=== PATIENT | male | born 1945 | race Caucasian/White ===

== ENCOUNTER 2024-01-05 12:24 | Observation (INO) ==
--- NOTE | 2024-01-05 12:44 | Emergency Department Note ---
Impression & Plan Altered mental status, Vomiting and diarrhea, Dementia, Aspiration into airway ED Provider Note NAME: JONNIE SILVA AGE: 78 SEX: M : 1945 ARRIVES VIA: Ambulance INFORMANT: [Patient][ems, son, nursing] ED PROVIDER(S): [Eliud Manuel MD] CHIEF COMPLAINT: Illness HISTORY OF PRESENT ILLNESS: The patient is an 78-year-old man with dementia. He resides at [place]. The patient was found somnolent and he had vomited. He had had diarrhea. He was brought for evaluation. There was concerns for aspiration. Apparently, there is a flulike illness going around his care center. As per the son, the patient seemed fine yesterday. The patient can give no history because of his dementia. PMHx/PSHx/Social Hx: See Below PHYSICAL EXAM: GENERAL: Patient is in no acute distress. HEENT: No acute trauma, normocephalic atraumatic, mucous membranes moist, no nasal congestion. NECK: No stridor, no adenopathy, no meningismus, trachea is midline. LUNGS: Clear to auscultation bilaterally when listening anterior, no wheeze, no rhonchi, breath sounds equal. HEART: Without murmurs gallops or rubs, regular rate and rhythm. ABDOMEN: Soft, nontender, no peritonitis. EXTREMITIES: No cyanosis, full range of motion of all the joints without pain or difficulty. NEUROLOGIC: Responds to voice or touch, somnolent, no acute motor or sensory deficits, no focal weakness. SKIN: No jaundice, no diaphoresis. DIFFERENTIAL DIAGNOSIS: Sepsis or bacteremia, aspiration, flu like illness, pneumonia, UTI, electrolyte imbalance, intracranial waiting or stroke, among others. EMERGENCY DEPARTMENT PROCEDURES: MEDICAL DECISION MAKING: There is no leukocytosis or concerning anemia. There is a normal platelet count. Potassium slightly low but not in need of emergent correction. No renal failure. Lactic acid level is not elevated making severe sepsis less likely. There is no concerning liver enzyme elevation. Ammonia level was not elevated. ECG shows a normal sinus rhythm, no obvious ST elevation. Cardiac enzyme testing x 1 is not consistent with acute cardiac injury. Patient appeared to be in a euthyroid state. Urinalysis suggests some dehydration, no findings of infection. Respiratory bio fire was negative. Brain CT showed no acute bleed or mass effect. Chest x-ray did not show pneumonia or CHF. On exam, patient seemed somnolent. He was not toxic or febrile. Patient received IV saline, 500 cc. He was given IV Zofran, IV ceftriaxone and IV Tylenol. The patient presents with concerns for aspiration. He was found covered in stool and vomitus. He has had a change in his mental state. Given his complaint complex, given the concerns for aspiration, I do think a hospital stay is warranted. I spoke with the patient and case management, I spoke with the son. The on-call hospitalist was consulted. Prior/Outside records/notes reviewed: Today's EMS notes describing his presentation and transport to this facility. ECG per my interpretation: Indication was weakness. The ECG shows a normal sinus rhythm with a rate of 74. There is some baseline artifact. No concerning ST elevation, no PVCs. The QTc is 441. Continuous Cardiac Monitoring per my interpretation: An order was placed for continuous cardiac monitoring. The monitor shows a rate of 78 with normal sinus rhythm. Imaging/x-ray results per my interpretation: Chest x-ray showed some chronic change, I saw no pneumonia or pneumothorax. Chronic Medical/Social conditions affecting care: Advanced age, history of dementia Care/Management discussed with: Case management, the on-call hospitalist. Level of care consideration(s): After review of the information above and other included data: --I believe the patient requires escalation of care to admission DISPOSITION: Admission Past Med/Surg History Medical History FHx: bilateral hip replacements Hypothyroid Dementia Hyperlipidemia Hypertension Surgical History History of replacement of both shoulder joints Social History Smoking Status: Never smoker Hx Alcohol Use: No Hx Substance Use: No Preferred Language: Micronesian Communication Ability: Effective Visual Impairment: Limited Hearing Ability: Hard of Hearing Janitor Supervisor Required: No Beliefs That Will Affect Care: Jew Jew Beliefs: Sikh Feels Safe at Home: Yes Diet: regular Allergies Allergies Allergy/AdvReac Type Severity Reaction Status Date / Time No Known Allergies Allergy Unverified 01/05/24 15:23 Home Meds Home Medications Medication Instructions Recorded Confirmed acetaminophen 325 mg tablet 650 mg PO TID 01/05/24 01/05/24 (Tylenol) ceramides 1,3,6-II (CeraVe Daily 1 applic topical DAILY 01/05/24 01/05/24 Moisturizing lotion) clonazepam 0.5 mg disintegrating 0.5 mg PO HS 01/05/24 01/05/24 tablet diclofenac sodium 1 % topical gel 2 g topical BID 01/05/24 01/05/24 escitalopram oxalate 5 mg tablet 5 mg PO DAILY 01/05/24 01/05/24 furosemide 40 mg tablet 40 mg PO Q OTHER DAY 01/05/24 01/05/24 furosemide 40 mg tablet 60 mg PO Q OTHER DAY 01/05/24 01/05/24 ketoconazole 2 % shampoo 1 applic topical 2XWK 01/05/24 01/05/24 levothyroxine 50 mcg tablet 50 mcg PO DAILY 01/05/24 01/05/24 loperamide 2 mg tablet 2 mg PO DAILY PRN .loose stool 01/05/24 01/05/24 (Anti-Diarrheal (loperamide)) losartan 100 mg tablet 100 mg PO HS 01/05/24 01/05/24 memantine 10 mg tablet 10 mg PO DAILY 01/05/24 01/05/24 Results & Data (ED) Vital Signs Vital Signs - 24 hr 01/05/24 12:38 01/05/24 12:39 01/05/24 12:46 Temperature 36.9 C Temperature Source Axillary Pulse Rate 71 78 Pulse Rate from SpO2 Sensor Respiratory Rate 22 Respiratory Effort / Characteristics Non-Labored Respiratory Depth Normal Blood Pressure 118/86 Blood Pressure Mean 96 Pulse Oximetry 95 93 Oxygen Delivery Method Room Air Room Air Sepsis Recent Fever Within 48 Hours No Sepsis New/Unexplained Change in Mental Status No Sepsis Action Taken by Nursing No Action Required 01/05/24 14:24 Temperature Temperature Source Pulse Rate 71 Pulse Rate from SpO2 Sensor 73 Respiratory Rate 22 Respiratory Effort / Characteristics Respiratory Depth Blood Pressure 129/64 Blood Pressure Mean 85 Pulse Oximetry 93 Oxygen Delivery Method Sepsis Recent Fever Within 48 Hours Sepsis New/Unexplained Change in Mental Status Sepsis Action Taken by Half-Way Medications Current Medication List: was personally reviewed by me Laboratory Data Attestation: I reviewed the patient's lab results. 01/05/24 12:41 01/05/24 12:41 Lab Results 01/05/24 01/05/2401/05/24 Range/Units 12:41 12:45 12:50 WBC 9.99 (4.8-10.8) K/ul RBC 4.37 L (4.70-6.10) M/uL Hgb 13.6 L (14.0-18.0) g/dl Hct 41.0 L (42.0-52.0) % MCV 93.8 (80.0-100.0) fL MCH 31.1 (25.0-34.0) pg MCHC 33.2 (32.0-36.0) g/dL RDW Std Deviation 42.2 (36.4-46.3) fL RDW Coeff of [place] 12.1 (11.5-14.5) % Plt Count 258 (130-400) K/uL MPV 9.9 (9.4-12.4) fL Immature Gran % (Auto) 0.4 % Neut % (Auto) 91.4 % Lymph % (Auto) 4.1 % [place] % (Auto) 4.0 % Eos % (Auto) 0.0 % Baso % (Auto) 0.1 % Neut # (Auto) 9.13 H (1.40-6.50) K/uL Lymph # (Auto) 0.41 L (1.20-3.40) K/uL [place] # (Auto) 0.40 (0.11-0.59) K/uL Eos # (Auto) 0.00 (0.00-0.50) K/uL Baso # (Auto) 0.01 (0.00-0.20) K/uL Immature Gran # (Auto) 0.04 (0.01-0.20) K/uL RBC Morphology Unremarkable Sodium 141 (136-145) mmol/L Potassium 3.3 L (3.5-5.1) mmol/L Chloride 104 (98-107) mmol/L Carbon Dioxide 28 (21-32) mmol/L Anion Gap 9 (3-11) BUN 17 (6-23) mg/dl Creatinine 0.79 (0.6-1.4) mg/dl Est Cr Clr Drug Dosing 90.7 ml/min Est GFR ( Amer) 98.3 ml/min Est GFR (Non-Af Amer) 84.8 ml/min BUN/Creatinine Ratio 21.5 H (10-20) Glucose 139 H (70-99(Fasting)) mg/dl Lactate (0.4-2.0) mmol/L Calcium 8.8 (8.6-10.3) mg/dl Magnesium 2.0 (1.7-2.4) mg/dl Total Bilirubin 0.6 (0.2-1.0) mg/dl AST 14 (13-39) U/L ALT 9 (7-52) U/L Alkaline Phosphatase 56 (34-104) U/L Ammonia 34.0 (18-72) umol/L Troponin I High Sens 5.9 (0-20) pg/ml Total Protein 7.1 (6.0-8.3) gm/dl Albumin 4.1 (3.4-5.0) gm/dl Globulin 3.0 (2.5-4.0) gm/dl Albumin/Globulin Ratio 1.4 (0.9-2) TSH 0.551 (0.300-4.500) uIu/ml Urine Color Urine Appearance (Clear) Urine pH (4.5-7.5) Ur Specific Fisher (1.000-1.030) Urine Protein (Negative) Urine Glucose (UA) (Negative) Urine Ketones (Negative) Urine Blood (Negative) Urine Nitrite (Negative) Urine Bilirubin (Negative) Urine Urobilinogen (Negative) Ur Leukocyte Esterase (Negative) Urine WBC (Auto) (0-5) /hpf Urine RBC (Auto) (0-4) /hpf U Hyaline Cast (Auto) (0-5) /lpf U Epithel Cells (Auto) (0-5) /lpf Urine Bacteria (Auto) (Negative) Adenovirus (PCR) Not Detected (NotDetected) B. pertussis DNA (PCR) Not Detected (NotDetected) B.parapertussis DNA PCR Not Detected (NotDetected) C. pneumoniae DNA (PCR) Not Detected (NotDetected) Coronavirus OC43 (PCR) Not Detected (NotDetected) Coronavirus HKU1 (PCR) Not Detected (NotDetected) Coronavirus 229E (PCR) Not Detected (NotDetected) SARS-CoV-2 (PCR) Not Detected (NotDetected) Coronavirus NL63 (PCR) Not Detected (NotDetected) Human Metapneumovir PCR Not Detected (NotDetected) Influenza Type A (PCR) Not Detected (NotDetected) Influenza Type B (PCR) Not Detected (NotDetected) M. pneumoniae (PCR) Not Detected (NotDetected) Parainfluenza 1 (PCR) Not Detected (NotDetected) Parainfluenza 2 (PCR) Not Detected (NotDetected) Parainfluenza 3 (PCR) Not Detected (NotDetected) Parainfluenza 4 (PCR) Not Detected (NotDetected) RSV (PCR) Not Detected (NotDetected) Entero/Rhino (PCR) Not Detected (NotDetected) 01/05/24 Range/Units 13:10 WBC (4.8-10.8) K/ul RBC (4.70-6.10) M/uL Hgb (14.0-18.0) g/dl Hct (42.0-52.0) % MCV (80.0-100.0) fL MCH (25.0-34.0) pg MCHC (32.0-36.0) g/dL RDW Std Deviation (36.4-46.3) fL RDW Coeff of [place] (11.5-14.5) % Plt Count (130-400) K/uL MPV (9.4-12.4) fL Immature Gran % (Auto) % Neut % (Auto) % Lymph % (Auto) % [place] % (Auto) % Eos % (Auto) % Baso % (Auto) % Neut # (Auto) (1.40-6.50) K/uL Lymph # (Auto) (1.20-3.40) K/uL [place] # (Auto) (0.11-0.59) K/uL Eos # (Auto) (0.00-0.50) K/uL Baso # (Auto) (0.00-0.20) K/uL Immature Gran # (Auto) (0.01-0.20) K/uL RBC Morphology Sodium (136-145) mmol/L Potassium (3.5-5.1) mmol/L Chloride (98-107) mmol/L Carbon Dioxide (21-32) mmol/L Anion Gap (3-11) BUN (6-23) mg/dl Creatinine (0.6-1.4) mg/dl Est Cr Clr Drug Dosing ml/min Est GFR ( Amer) ml/min Est GFR (Non-Af Amer) ml/min BUN/Creatinine Ratio (10-20) Glucose (70-99(Fasting)) mg/dl Lactate 1.9 (0.4-2.0) mmol/L Calcium (8.6-10.3) mg/dl Magnesium (1.7-2.4) mg/dl Total Bilirubin (0.2-1.0) mg/dl AST (13-39) U/L ALT (7-52) U/L Alkaline Phosphatase (34-104) U/L Ammonia (18-72) umol/L Troponin I High Sens (0-20) pg/ml Total Protein (6.0-8.3) gm/dl Albumin (3.4-5.0) gm/dl Globulin (2.5-4.0) gm/dl Albumin/Globulin Ratio (0.9-2) TSH (0.300-4.500) uIu/ml Urine Color Dark Yellow Urine Appearance Clear (Clear) Urine pH 5.5 (4.5-7.5) Ur Specific Fisher 1.030 (1.000-1.030) Urine Protein Trace H (Negative) Urine Glucose (UA) Negative (Negative) Urine Ketones Trace H (Negative) Urine Blood Negative (Negative) Urine Nitrite Negative (Negative) Urine Bilirubin Negative (Negative) Urine Urobilinogen Negative (Negative) Ur Leukocyte Esterase Trace H (Negative) Urine WBC (Auto) 1-5 (0-5) /hpf Urine RBC (Auto) 0-4 (0-4) /hpf U Hyaline Cast (Auto) 1-5 (0-5) /lpf U Epithel Cells (Auto) 10-20 H (0-5) /lpf Urine Bacteria (Auto) Negative (Negative) Adenovirus (PCR) (NotDetected) B. pertussis DNA (PCR) (NotDetected) B.parapertussis DNA PCR (NotDetected) C. pneumoniae DNA (PCR) (NotDetected) Coronavirus OC43 (PCR) (NotDetected) Coronavirus HKU1 (PCR) (NotDetected) Coronavirus 229E (PCR) (NotDetected) SARS-CoV-2 (PCR) (NotDetected) Coronavirus NL63 (PCR) (NotDetected) Human Metapneumovir PCR (NotDetected) Influenza Type A (PCR) (NotDetected) Influenza Type B (PCR) (NotDetected) M. pneumoniae (PCR) (NotDetected) Parainfluenza 1 (PCR) (NotDetected) Parainfluenza 2 (PCR) (NotDetected) Parainfluenza 3 (PCR) (NotDetected) Parainfluenza 4 (PCR) (NotDetected) RSV (PCR) (NotDetected) Entero/Rhino (PCR) (NotDetected) Administered Medications Discontinued Medications Ceftriaxone Sodium (Rocephin) 2,000 mg in 50 mls @ 100 mls/hr IV NOW STA Stop: 01/05/24 13:08 Last Infusion: 01/05/24 14:21 Dose: Infused Documented By: Admin: 01/05/24 13:45 Dose: 100 mls/hr Documented By: NRLynda Sodium Chloride (Nss) 500 mls @ 999 mls/hr IV .Q31M LEON Stop: 01/05/24 13:15 Last Infusion: 01/05/24 13:56 Dose: Infused Documented By: JORGE L Admin: 01/05/24 13:24 Dose: 999 mls/hr Documented By: JORGE L Acetaminophen (Ofirmev) 1,000 mg in 100 mls @ 400 mls/hr IV NOW STA Stop: 01/05/24 12:53 Last Infusion: 01/05/24 13:45 Dose: Infused Documented By: Admin: 01/05/24 13:24 Dose: 400 mls/hr Documented By: NRB Ondansetron HCl (Ondansetron Inj 2 Mg/Ml 2 Ml Vial) 4 mg IV NOW STA Stop: 01/05/24 12:40 Last Admin: 01/05/24 13:24 Dose: 4 mg Documented By: NRB Imaging Data Radiologist's Impression: Chest X-Ray 01/05/24 12:40 XR chest 1V portable HISTORY: 78 years-old Male weakness acute weakness COMPARISON: 10/04/2021 TECHNIQUE: AP view the chest FINDINGS: Cardiac silhouette is enlarged. No pneumothorax, pleural effusion or overt pulmonary edema. No airspace consolidation typical for pneumonia. Mild left basilar atelectasis. Bilateral shoulder arthroplasties. IMPRESSION: Cardiomegaly without acute process. ACT 112: Negative or not required by law. The above report was generated using voice recognition software. It may contain grammatical, syntax or spelling errors. Electronically signed by: Jono Mehta M.D. 01/05/2024 12:[address] 01/05/24 12:40 CT head/brain wo con CLINICAL HISTORY: 78 years-old Male with altered. Acutely altered mental status TECHNIQUE: Multiple axial CT images of the head were obtained without contrast. A dose lowering technique was utilized adhering to the principles of ALARA. CT DOSE: 547.75 mGy.cm COMPARISON: 10/04/2021 FINDINGS: No acute intracranial hemorrhage, midline shift, intracranial mass, hydrocephalus, territorial ischemia or abnormal extra-axial collection. Involutional changes with white matter hyperintensities suggestive of chronic microvascular ischemic disease. The calvarium is intact. Trace right mastoid effusion. The left mastoid air cells and paranasal sinuses are generally clear. Unremarkable soft tissues. Prior bilateral lens repair. IMPRESSION: No acute intracranial abnormality. ACT 112: Negative or not required by law. The above report was generated using voice recognition software. It may contain grammatical, syntax or spelling errors. Electronically signed by: Jono Mehta M.D. 01/05/2024 1:57 PM Discharge Plan Visit Data Chief Complaint: Illness Stated Complaint: ILLNESS ED Provider: Eliud Manuel Discharge Problem: Altered mental status, Vomiting and diarrhea, Dementia, Aspiration into airway Patient Disposition: Admitted As Inpatient Condition: Fair Forms Stand Alone Forms: [facility] Prescriptions Prescriptions: No Action furosemide 40 mg tablet 60 mg PO Q OTHER DAY Rx Instructions: Alternate with 40 mg QOD furosemide 40 mg tablet 40 mg PO Q OTHER DAY Rx Instructions: Alternate with 60 mg QOD acetaminophen [Tylenol] 325 mg Tablet 650 mg PO TID ketoconazole 2 % shampoo 1 applic TOPICAL 2XWK loperamide [Anti-Diarrheal (loperamide)] 2 mg Tablet 2 mg PO DAILY PRN (Reason: .loose stool) Rx Instructions: administer after each loose stool until symptoms controlled; do not exceed 8 mg per 24 hrs levothyroxine 50 mcg tablet 50 mcg PO DAILY losartan 100 mg tablet 100 mg PO HS clonazepam 0.5 mg tablet,disintegrating 0.5 mg PO HS memantine 10 mg tablet 10 mg PO DAILY escitalopram oxalate 5 mg tablet 5 mg PO DAILY CeraVe Daily Moisturizing Lotion 1 applic TOPICAL DAILY Rx Instructions: Apply to affected areas on dry skin on upper extremities diclofenac sodium 1 % gel 2 g TOPICAL BID Rx Instructions: Apply to right knee Referrals Referrals: [facility] [Primary Care Provider] - Discharge Problem: Altered mental status Qualifiers: Altered mental status type: stupor Qualified Code(s): R40.1 - Stupor Dementia Qualifiers: Dementia type: unspecified type Dementia severity: moderate Dementia behavioral or psychological symptom: with other behavioral disturbance Qualified Code(s): F 03.B18 - Unspecified dementia, moderate, with other behavioral disturbance Aspiration into airway Qualifiers: Encounter type: initial encounter Qualified Code(s): T17.908A - Unspecified foreign body in respiratory tract, part unspecified causing other injury, initial encounter
--- NOTE | 2024-01-05 12:55 | XRay Report ---
XR chest 1V portable HISTORY: 78 years-old Male weakness acute weakness COMPARISON: 10/04/2021 TECHNIQUE: AP view the chest FINDINGS: Cardiac silhouette is enlarged. No pneumothorax, pleural effusion or overt pulmonary edema. No airspa ce consolidation typical for pneumonia. Mild left basilar atelectasis. Bilateral shoulder arthroplast ies. IMPRESSION: Cardiomegaly without acute process. ACT 112: Negative or not required by law. The above report was generated using voice recognition software. It may contain grammatical, syntax o r spelling errors. Electronically signed by: Jono Mehta M.D. 01/05/2024 12:54 PM
[2024-01-05 12:56] LABS: Hemoglobin 13.6 g/dl (14.0-18.0); Mean Corpuscular Hemoglobin 31.1 pg (25.0-34.0); Mean Corpuscular Hgb Conc 33.2 g/dL (32.0-36.0); Mean Corpuscular Volume 93.8 fL (80.0-100.0); Mean Platelet Volume 9.9 fL (9.4-12.4); Platelet Count 258 K/uL (130-400); RDW Coefficient of Variation 12.1 % (11.5-14.5); RDW Standard Deviation 42.2 fL (36.4-46.3); Red Blood Count 4.37 M/uL (4.70-6.10); White Blood Count 9.99 K/ul (4.8-10.8)
[2024-01-05 13:14] LABS: Albumin Globulin Ratio 1.4 (0.9-2); Albumin Level 4.1 gm/dl (3.4-5.0); BUN Creatinine Ratio 21.5 (10-20); Bilirubin,Total 0.6 mg/dl (0.2-1.0); Calcium 8.8 mg/dl (8.6-10.3); Creatinine Clr Calc Pharmacy 90.7 ml/min; Est GFR (African American) 98.3 ml/min; Est GFR (Non-African American) 84.8 ml/min; Potassium 3.3 mmol/L (3.5-5.1); Total Protein 7.1 gm/dl (6.0-8.3)
[2024-01-05 13:19] LABS: Troponin I High Sensitivity 5.9 pg/ml (0-20)
[2024-01-05 13:24] LABS: Appearance Urine Clear (Clear); Bacteria Urine Automated Negative (Negative); Bilirubin Urine Negative (Negative); Blood Urine Negative (Negative); Color Urine Dark Yellow; Glucose Urine UA Negative (Negative); Ketones Urine Trace (Negative); Leukocyte Esterase Urine Trace (Negative); Nitrite Urine Negative (Negative); Protein Urine Trace (Negative); RBC Urine Automated 0-4 /hpf (0-4); Urobilinogen Urine Negative (Negative); pH Urine 5.5 (4.5-7.5)
[2024-01-05] MEDS: ONDANSETRON INJ 2 MG/ML 2 ML VIAL IV STA (13:24)
[2024-01-05] MEDS: ACETAMINOPHEN 1,000 MG/100 ML VIAL IV STA (13:24)
[2024-01-05] MEDS: SODIUM CHLORIDE 0.9% 500 ML IV SCH (13:24)
[2024-01-05 13:25] LABS: Basophils # (auto) 0.01 K/uL (0.00-0.20); Basophils % (auto) 0.1 %; Immature Granulocytes # (auto) 0.04 K/uL (0.01-0.20); Immature Granulocytes % (auto) 0.4 %; Lymphocytes # (auto) 0.41 K/uL (1.20-3.40); Lymphocytes % (auto) 4.1 %; Neutrophils # (auto) 9.13 K/uL (1.40-6.50); Neutrophils % (auto) 91.4 %; RBC Morphology Unremarkable
[2024-01-05 13:28] LABS: Thyroid Stimulating Hormone 0.551 uIu/ml (0.300-4.500)
[2024-01-05] MEDS: cefTRIAXone SODIUM 2,000 MG/50 ML BAG IV STA (13:45)
--- NOTE | 2024-01-05 13:59 | CT Scan Report ---
CT head/brain wo con CLINICAL HISTORY: 78 years-old Male with altered. Acutely altered mental status TECHNIQUE: Multiple axial CT images of the head were obtained without contrast. A dose lowering tech nique was utilized adhering to the principles of ALARA. CT DOSE: 547.75 mGy.cm COMPARISON: 10/04/2021 FINDINGS: No acute intracranial hemorrhage, midline shift, intracranial mass, hydrocephalus, territorial ischem ia or abnormal extra-axial collection. Involutional changes with white matter hyperintensities sugges tive of chronic microvascular ischemic disease. The calvarium is intact. Trace right mastoid effusion. The left mastoid air cells and paranasal sinu ses are generally clear. Unremarkable soft tissues. Prior bilateral lens repair. IMPRESSION: No acute intracranial abnormality. ACT 112: Negative or not required by law. The above report was generated using voice recognition software. It may contain grammatical, syntax o r spelling errors. Electronically signed by: Jono Mehta M.D. 01/05/2024 1:57 PM
[2024-01-05 14:09] LABS: Adenovirus PCR Not Detected (NotDetected); Bordetella parapertussis PCR Not Detected (NotDetected); Bordetella pertussis PCR Not Detected (NotDetected); Chlamydia pneumoniae PCR Not Detected (NotDetected); Coronavirus 229E PCR Not Detected (NotDetected); Coronavirus CoV-2 (COVID19)PCR Not Detected (NotDetected); Coronavirus HKU1 PCR Not Detected (NotDetected); Coronavirus NL63 PCR Not Detected (NotDetected); Coronavirus OC43PCR Not Detected (NotDetected); Human Metapneumovirus PCR Not Detected (NotDetected); Influenza A PCR Not Detected (NotDetected); Influenza B PCR Not Detected (NotDetected); Mycoplasma pneumoniae PCR Not Detected (NotDetected); Parainfluenza Virus 1 PCR Not Detected (NotDetected); Parainfluenza Virus 2 PCR Not Detected (NotDetected); Parainfluenza Virus 3 PCR Not Detected (NotDetected); Parainfluenza Virus 4 PCR Not Detected (NotDetected); Respiratory Syncytial VirusPCR Not Detected (NotDetected); Rhinovirus/Enterovirus PCR Not Detected (NotDetected)
--- NOTE | 2024-01-05 14:41 | History & Physical Report ---
Date of Service January 05, 2024 Assessment & Plan (1) Vomiting and diarrhea: Plan: Patient from [facility] for on the morning of 01/05 covered in vomit and diarrhea Per son at the bedside, LWK the evening of 01/04 Son reports that there is a viral illness going through the nursing facility No leukocytosis; afebrile CXR cardiomegaly without acute process; no consolidation to suggest pneumonia Head CT NAF Rocephin 2000 mg IV x 1 given in the ED; will defer further antibiotics at this time IV fluid resuscitation with Plasma-Lyte at 100mL/hr x 2 Zofran as needed for nausea/vomiting; QTc 441 Aspiration precautions Fall precautions A.m. CBC, BMP (2) Dementia: Plan: Advanced dementia; patient is nonverbal, does not follow commands, and is unresponsive to questioning Patient's family is currently considering hospice care Case management consulted to provide additional hospice information upon discharge Continue memantine (3) Hypokalemia: Plan: Mild; K 3.3 on arrival K rider 10mEq x 1 IVF resuscitation (as above) Recheck a.m. BMP (4) Hypertension: Plan: Hold Lasix, continue losartan (5) Hypothyroid: Plan: Hold levothyroxine Plan Disposition: Obs admit to [facility] DNR/DNI Keep n.p.o. for now (aspiration precautions) VTE PPx: Teds History of Present Illness Chief Complaint: Vomiting, diarrhea, lethargy Primary Care Provider: Michelle of [place] Ok is an 78-year-old male with PMH of HTN, hyperlipidemia, advanced dementia, hypothyroidism, and neuropathy. He presented via EMS from [facility] (memory unit) for possible aspiration the morning of 01/05. Patient was found this morning covered in diarrhea and vomit, and was thought to be warm to touch. LKW was last night on 01/04. EMS stated SpO2 was 91% on RA on arrival. Patient is fully nonverbal and somnolent at the bedside. Patient's son (Ok) is present at the bedside and provides most of the history. He reports that his father has advanced dementia, and this is not an acute change in mental status. He does note that there is reportedly a viral illness going around the nursing facility at this time, and that other residents have been sick with similar symptoms. Patient's son notes that they are currently contemplating enrolling the patient in hospice for his advanced dementia, however he has not currently been enrolled. Patient's 2 sons (Derrek and Ok) are POAs. Discussed code status, and son wishes to make him DNR/DNI. Vital stable at time of admission; SpO2 93% on RA. ED course: Zofran 4 mg IV Rocephin 2000 mg IV NSS 500 mL IV Acetaminophen 1000 mg IV Unable to obtain ROS given patient's advanced dementia; nonverbal. Patient's son reports that he did not have any fevers or cough yesterday on 01/04. Allergies Allergy/AdvReac Type Severity Reaction Status Date / Time No Known Allergies Allergy Unverified 01/05/24 15:23 Home Medications Medication Instructions Recorded Confirmed Type acetaminophen 325 mg tablet 650 mg PO TID 01/05/24 01/05/24 History (Tylenol) ceramides 1,3,6-II (CeraVe Daily 1 applic topical DAILY 01/05/24 01/05/24 History Moisturizing lotion) clonazepam 0.5 mg disintegrating 0.5 mg PO HS 01/05/24 01/05/24 History tablet diclofenac sodium 1 % topical gel 2 g topical BID 01/05/24 01/05/24 History escitalopram oxalate 5 mg tablet 5 mg PO DAILY 01/05/24 01/05/24 History furosemide 40 mg tablet 40 mg PO Q OTHER DAY 01/05/24 01/05/24 History furosemide 40 mg tablet 60 mg PO Q OTHER DAY 01/05/24 01/05/24 History ketoconazole 2 % shampoo 1 applic topical 2XWK 01/05/24 01/05/24 History levothyroxine 50 mcg tablet 50 mcg PO DAILY 01/05/24 01/05/24 History loperamide 2 mg tablet 2 mg PO DAILY PRN .loose stool 01/05/24 01/05/24 History (Anti-Diarrheal (loperamide)) losartan 100 mg tablet 100 mg PO HS 01/05/24 01/05/24 History memantine 10 mg tablet 10 mg PO DAILY 01/05/24 01/05/24 History Past Med/Surg History Medical History FHx: bilateral hip replacements Hypothyroid Dementia Hyperlipidemia Hypertension Surgical History History of replacement of both shoulder joints Social History Smoking Status: Never smoker Hx Alcohol Use: No Hx Substance Use: No Preferred Language: Belarusian Communication Ability: Effective Visual Impairment: Limited Hearing Ability: Hard of Hearing Channeler Required: No Beliefs That Will Affect Care: Scientologist Scientologist Beliefs: Voodoo Feels Safe at Home: Yes Diet: regular Review of Systems Review of Systems: See HPI above Physical Exam Physical Exam: General: Lethargic; nonverbal; does not follow commands; will open eyes and make eye contact to physical stimuli; non-toxic appearing HEENT: normocephalic, atraumatic; no scleral icterus; PERRLA; dry mucus membrane with some crusting on the lower lips; unable to assess vision and hearing Neck: supple; no JVD; no lymphadenopathy; trachea midline; neck erythematous Skin: warm, dry without signs of tenting; no cyanosis; no rashes, bruising, lesions, or erythema noted CV: chest wall NTP; RRR; S1/S2 normal; no murmurs/rubs/gallops; pulses intact and symmetric at radial, DP, and PT Lungs: no acute respiratory distress; symmetrical chest wall expansion; clear breath sounds across all lung gutiérrez w/o adventitious sounds; no wheezing ABD: Firm, NTP; BS present; no rebound/guarding; no ascites; moderate distention secondary to body habitus MSK: no tics or fasciculations; no edema noted in the LEs b/l, nonerythematous Neuro: Nonverbal; unable to assess for alertness and orientation; unable to assess sensation; does not follow commands such as wiggling toes when asked Results & Data Results & Data Vital Signs (Past 12 Hours) Vital Signs Temp Pulse Resp BP Pulse Ox O2 Del Method 01/05/24 14:24 71 22 129/64 93 01/05/24 12:46 93 Room Air 01/05/24 12:39 36.9 C 78 22 118/86 95 Room Air 01/05/24 12:38 71 Laboratory Results Abnormal lab results 01/05/24 01/05/24 Range/Units 12:41 13:10 RBC 4.37 L (4.70-6.10) M/uL Hgb 13.6 L (14.0-18.0) g/dl Hct 41.0 L (42.0-52.0) % Neut # (Auto) 9.13 H (1.40-6.50) K/uL Lymph # (Auto) 0.41 L (1.20-3.40) K/uL Potassium 3.3 L (3.5-5.1) mmol/L BUN/Creatinine Ratio 21.5 H (10-20) Glucose 139 H (70-99(Fasting)) mg/dl Urine Protein Trace H (Negative) Urine Ketones Trace H (Negative) Ur Leukocyte Esterase Trace H (Negative) U Epithel Cells (Auto) 10-20 H (0-5) /lpf Diagnostic Findings Chest X-Ray 01/05/24 12:40 XR chest 1V portable HISTORY: 78 years-old Male weakness acute weakness COMPARISON: 10/04/2021 TECHNIQUE: AP view the chest FINDINGS: Cardiac silhouette is enlarged. No pneumothorax, pleural effusion or overt pulmonary edema. No airspace consolidation typical for pneumonia. Mild left basilar atelectasis. Bilateral shoulder arthroplasties. IMPRESSION: Cardiomegaly without acute process. ACT 112: Negative or not required by law. The above report was generated using voice recognition software. It may contain grammatical, syntax or spelling errors. Electronically signed by: Jono Mehta M.D. 01/05/2024 12:[address] 01/05/24 12:40 CT head/brain wo con CLINICAL HISTORY: 78 years-old Male with altered. Acutely altered mental status TECHNIQUE: Multiple axial CT images of the head were obtained without contrast. A dose lowering technique was utilized adhering to the principles of ALARA. CT DOSE: 547.75 mGy.cm COMPARISON: 10/04/2021 FINDINGS: No acute intracranial hemorrhage, midline shift, intracranial mass, hydrocephalus, territorial ischemia or abnormal extra-axial collection. Involutional changes with white matter hyperintensities suggestive of chronic microvascular ischemic disease. The calvarium is intact. Trace right mastoid effusion. The left mastoid air cells and paranasal sinuses are generally clear. Unremarkable soft tissues. Prior bilateral lens repair. IMPRESSION: No acute intracranial abnormality. ACT 112: Negative or not required by law. The above report was generated using voice recognition software. It may contain grammatical, syntax or spelling errors. Electronically signed by: Jono Mehta M.D. 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 His bio fire on admission was negative. Chest x-ray without evidence of acute pneumonia or aspiration pneumonitis. Patient is more sedated than his normal, was recommended for observation. Received empiric antibiotics, no leukocytosis is present and UA is not infected appearing. No further antibiotics are indicated at this time. Due to history of liquid diarrhea and incontinence stool bio fire was ordered. Agree with assessment and management above. Patient has been pursuing hospice arrangements through [facility], and escalation of care would not be consistent with his goals however arguable to/would like overnight observation at this time. N.p.o. for aspiration precautions until able to pass a swallow study, will follow fever curve for 24 hours. CThead normal. At bedside lungs are diminished but clear, patient does not give any meaningful history however son provides collateral at the bedside. And in the emergency his brother/patient's other son Derrek Ochoa is available at [phone] agree with management above PG Care Time/CCT Total # of Minutes Spent Total Time Spent with Patient: Total time spent is greater than 50% in coordination of care (as documented) at patient's floor/unit and/or counseling patient: [place] [address] INT INP/OBS CARE 1/40MIN Patient Type New History Detailed Exam Detailed Medical Decision Making Low Complexity Diagnoses Vomiting and diarrhea R11.10; R19.7 Dementia F03.90 Hypokalemia E87.6 Hypertension I10 Hypothyroid E03.9
[2024-01-05] MEDS: PLASMA-LYTE A 1,000 ML IV SCH (15:51)
[2024-01-05] MEDS: POTASSIUM CHLORIDE / WTR 10 MEQ/100 ML PLCT IV ONE (15:53)
[2024-01-05] MEDS ORDERED: ONDANSETRON INJ 2 MG/ML 2 ML VIAL IV PRN (17:21)
[2024-01-05] MEDS ORDERED: ACETAMINOPHEN 1,000 MG/100 ML VIAL IV PRN (17:21)
[2024-01-05 19:21] LABS: Adenovirus F 40/41 PCR Not Detected (NotDetected); Astrovirus PCR Not Detected (NotDetected); Campylobacter PCR Not Detected (NotDetected); Cryptosporidium PCR Not Detected (NotDetected); Cyclospora cayetanensis PCR Not Detected (NotDetected); Entamoeba histolytica PCR Not Detected (NotDetected); Enteroaggregative E.coli(EAEC) Not Detected (NotDetected); Enteropathogenic E.coli (EPEC) Not Detected (NotDetected); Enterotoxigenic E.coli (ETEC) Not Detected (NotDetected); Giardia lamblia PCR Not Detected (NotDetected); Plesiomonas shigelloides PCR Not Detected (NotDetected); Rotavirus A PCR Not Detected (NotDetected); Salmonella PCR Not Detected (NotDetected); Sapovirus PCR Not Detected (NotDetected); Shiga-like Toxin E.coli (STEC) Not Detected (NotDetected); Shigella/Enteroinvasive E.coli Not Detected (NotDetected); Vibrio cholerae PCR Not Detected (NotDetected); Vibrio species PCR Not Detected (NotDetected); Yersinia enterocolitica PCR Not Detected (NotDetected)
[2024-01-05 19:26] LABS: Norovirus GI/GII PCR DETECTED (NotDetected)
[2024-01-05] MEDS: clonazePAM 0.5 MG TAB PO SCH (20:42)
[2024-01-05] MEDS: LOSARTAN POTASSIUM 50 MG TAB PO SCH (20:42)
[2024-01-05] MEDS: DICLOFENAC SOD 1% GEL 100 GM TUBE EXT SCH (20:42)
[2024-01-06 07:19] LABS: BUN Creatinine Ratio 40.3 (10-20); Calcium 7.8 mg/dl (8.6-10.3); Creatinine Clr Calc Pharmacy 106.9 ml/min; Est GFR (African American) 105.2 ml/min; Est GFR (Non-African American) 90.8 ml/min; Potassium 3.3 mmol/L (3.5-5.1)
[2024-01-06 08:06] LABS: Basophils # (auto) 0.02 K/uL (0.00-0.20); Basophils % (auto) 0.2 %; Hematocrit (blood only) 31.4 % (42.0-52.0); Hemoglobin 10.4 g/dl (14.0-18.0); Immature Granulocytes # (auto) 0.05 K/uL (0.01-0.20); Immature Granulocytes % (auto) 0.4 %; Lymphocytes # (auto) 1.99 K/uL (1.20-3.40); Lymphocytes % (auto) 16.5 %; Mean Corpuscular Hemoglobin 31.5 pg (25.0-34.0); Mean Corpuscular Hgb Conc 33.1 g/dL (32.0-36.0); Mean Corpuscular Volume 95.2 fL (80.0-100.0); Mean Platelet Volume 10.6 fL (9.4-12.4); Monocytes # (auto) 1.42 K/uL (0.11-0.59); Monocytes % (auto) 11.8 %; Neutrophils # (auto) 8.58 K/uL (1.40-6.50); Neutrophils % (auto) 71.1 %; Platelet Count 202 K/uL (130-400); RDW Coefficient of Variation 12.4 % (11.5-14.5); RDW Standard Deviation 43.5 fL (36.4-46.3); White Blood Count 12.06 K/ul (4.8-10.8)
[2024-01-06] MEDS: MEMANTINE HCL 10 MG TAB PO SCH (10:16)
[2024-01-06] MEDS: ESCITALOPRAM OXALATE 10 MG TAB PO SCH (10:16)
--- NOTE | 2024-01-06 10:34 | Hospitalist Progress Note ---
Date of Service January 06, 2024 Assessment & Plan (1) Vomiting and diarrhea: Plan: Patient's from [place], present on account of vomiting and diarrhea Son reports that there is a viral illness going through the nursing facility No leukocytosis; afebrile CXR cardiomegaly without acute process; no consolidation to suggest pneumonia Head CT NAF Rocephin 2000 mg IV x 1 given in the ED; will defer further antibiotics at this time IV fluid resuscitation with Plasma-Lyte at 100mL/hr x 2 Zofran as needed for nausea/vomiting; QTc 441 Aspiration precautions Fall precautions (2) Dementia: Plan: Advanced dementia; patient is nonverbal, does not follow commands, and is unresponsive to questioning Patient's family is currently considering hospice care Case management consulted to provide additional hospice information upon discharge Continue memantine (3) Hypokalemia: Plan: Replace potassium (4) Hypertension: Plan: Hold Lasix, continue losartan (5) Hypothyroid: Plan: Hold levothyroxine Plan Disposition: Continue to monitor DNR/DNI VTE PPx: Teds Admission and Anticipated Discharge Date Admission Date: January 05, 2024 Subjective Patient seen and examined, son by the bedside, unable to obtain any further history from him due to dementia Review of Systems Review of Systems: Unreliable due to dementia Physical Exam Physical Exam: The patient is awake, confused HEENT--PERRL, EOMI, mucous membranes and oropharynx mildly dry Neck--supple. No JVD. No bruits. Thyroid normal, trachea midline, no adenopathy. Heart--normal S1 and S2. No murmurs, rubs or gallops. Lungs--clear bilaterally, no respiratory distress, no accessory muscle use. Abdomen--normal bowel sounds and soft. Mild epigastric and left sided abdominal pain Extremities--no cyanosis or clubbing. No edema. Dermatologic--normal skin turgor, normal color, no abnormal lymph nodes, no rash. Neurologic--cranial nerves II through XII grossly intact. Rheumatologic--normal range of motion. Psychiatric--unable to fully assess. Results & Data Results & Data Vital Signs (Past 12 Hours) Vital Signs Temp Pulse Resp BP Pulse Ox O2 Del Method 01/06/24 09:00 Room Air 01/06/24 07:11 98.1 F 60 18 110/63 93 Room Air PG Care Time/CCT Total # of Minutes Spent Total Time Spent with Patient: Total time spent is greater than 50% in coordination of care (as documented) at patient's floor/unit and/or counseling patient: Coding Level of Care Code 36793 SUB INP/OBS CARE 2/35MIN Diagnoses Vomiting and diarrhea R11.10; R19.7 Dementia F03.90 Hypokalemia E87.6 Hypertension I10 Hypothyroid E03.9 Time Spent (min) 35
--- NOTE | 2024-01-06 22:19 | Electrocardiogram Report ---
Test Reason : Blood Pressure : / mmHG Vent. Rate : 074 BPM Atrial Rate : 074 BPM P-R Int : 168 ms QRS Dur : 098 ms QT Int : 398 ms P-R-T Axes : 050 078 082 degrees QTc Int : 441 ms Poor data quality, interpretation may be adversely affected Normal sinus rhythm Probable Normal ECG When compared with ECG of 04-OCT-2021 07:55, Vent. rate has increased BY 27 BPM Confirmed by Jim Garcia ([id number]) on 01/06/2024 10:19:04 PM Referred By: Confirmed By:Jim Garcia
[2024-01-07 07:53] LABS: Hematocrit (blood only) 34.8 % (42.0-52.0); Mean Corpuscular Hgb Conc 31.6 g/dL (32.0-36.0); Mean Platelet Volume 10.3 fL (9.4-12.4); Platelet Count 198 K/uL (130-400); RDW Coefficient of Variation 12.3 % (11.5-14.5); RDW Standard Deviation 44.5 fL (36.4-46.3); Red Blood Count 3.55 M/uL (4.70-6.10); White Blood Count 9.98 K/ul (4.8-10.8)
[2024-01-07 08:11] LABS: BUN Creatinine Ratio 29.5 (10-20); Calcium 8.1 mg/dl (8.6-10.3); Creatinine Clr Calc Pharmacy 117.4 ml/min; Est GFR (African American) 109.3 ml/min; Est GFR (Non-African American) 94.3 ml/min; Potassium 3.5 mmol/L (3.5-5.1)
--- NOTE | 2024-01-07 12:18 | Hospitalist Progress Note ---
Date of Service January 07, 2024 Assessment & Plan (1) Vomiting and diarrhea: Plan: Patient's from [place], present on account of vomiting and diarrhea Son reports that there is a viral illness going through the nursing facility No leukocytosis; afebrile CXR cardiomegaly without acute process; no consolidation to suggest pneumonia Head CT NAF Rocephin 2000 mg IV x 1 given in the ED; will defer further antibiotics at this time IV fluid resuscitation with Plasma-Lyte at 100mL/hr x 2 Zofran as needed for nausea/vomiting; QTc 441 Aspiration precautions Fall precautions (2) Dementia: Plan: Advanced dementia; patient is nonverbal, does not follow commands, and is unresponsive to questioning Patient's family is currently considering hospice care Case management consulted to provide additional hospice information upon discharge Continue memantine (3) Hypokalemia: Plan: Replace potassium (4) Hypertension: Plan: Hold Lasix, continue losartan (5) Hypothyroid: Plan: Hold levothyroxine Plan Disposition: Family has started to sign up for hospice, awaiting for bed to be delivered so that patient will be discharged home on hospice. DNR/DNI VTE PPx: Teds Admission and Anticipated Discharge Date Admission Date: January 05, 2024 Subjective Patient seen and examined, unable to interact due to dementia, patient awake alert, eating breakfast Review of Systems Review of Systems: Unreliable due to dementia Physical Exam Physical Exam: The patient is awake, confused HEENT--PERRL, EOMI, mucous membranes and oropharynx mildly dry Neck--supple. No JVD. No bruits. Thyroid normal, trachea midline, no adenopathy. Heart--normal S1 and S2. No murmurs, rubs or gallops. Lungs--clear bilaterally, no respiratory distress, no accessory muscle use. Abdomen--normal bowel sounds and soft. Mild epigastric and left sided abdominal pain Extremities--no cyanosis or clubbing. No edema. Dermatologic--normal skin turgor, normal color, no abnormal lymph nodes, no rash. Neurologic--cranial nerves II through XII grossly intact. Rheumatologic--normal range of motion. Psychiatric--unable to fully assess. Results & Data Results & Data Vital Signs (Past 12 Hours) Vital Signs Temp Pulse Resp BP Pulse Ox O2 Del Method 01/07/24 08:11 97.5 F L 51 L 16 131/67 93 Room Air PG Care Time/CCT Total # of Minutes Spent Total Time Spent with Patient: Total time spent is greater than 50% in coordination of care (as documented) at patient's floor/unit and/or counseling patient: Coding Level of Care Code 13713 SUB INP/OBS CARE 2/35MIN Diagnoses Vomiting and diarrhea R11.10; R19.7 Dementia F03.90 Hypokalemia E87.6 Hypertension I10 Hypothyroid E03.9 Time Spent (min) 35
--- NOTE | 2024-01-07 13:57 | Discharge Summary ---
Date of Service January 07, 2024 Admission HPI Per Admitting Provider Ok is an 78-year-old male with PMH of HTN, hyperlipidemia, advanced dementia, hypothyroidism, and neuropathy. He presented via EMS from [facility] (memory unit) for possible aspiration the morning of 01/05. Patient was found this morning covered in diarrhea and vomit, and was thought to be warm to touch. LKW was last night on 01/04. EMS stated SpO2 was 91% on RA on arrival. Patient is fully nonverbal and somnolent at the bedside. Patient's son (Ok) is present at the bedside and provides most of the history. He reports that his father has advanced dementia, and this is not an acute change in mental status. He does note that there is reportedly a viral illness going around the nursing facility at this time, and that other residents have been sick with similar symptoms. Patient's son notes that they are currently contemplating enrolling the patient in hospice for his advanced dementia, however he has not currently been enrolled. Patient's 2 sons (Derrek and Ok) are POAs. Discussed code status, and son wishes to make him DNR/DNI. Vital stable at time of admission; SpO2 93% on RA. ED course: Zofran 4 mg IV Rocephin 2000 mg IV NSS 500 mL IV Acetaminophen 1000 mg IV Unable to obtain ROS given patient's advanced dementia; nonverbal. Patient's son reports that he did not have any fevers or cough yesterday on 01/04. Principal Diagnosis dementia, gastroenteritis Discharge Exam The patient is awake, confused HEENT--PERRL, EOMI, mucous membranes and oropharynx mildly dry Neck--supple. No JVD. No bruits. Thyroid normal, trachea midline, no adenopathy. Heart--normal S1 and S2. No murmurs, rubs or gallops. Lungs--clear bilaterally, no respiratory distress, no accessory muscle use. Abdomen--normal bowel sounds and soft. Mild epigastric and left sided abdominal pain Extremities--no cyanosis or clubbing. No edema. Dermatologic--normal skin turgor, normal color, no abnormal lymph nodes, no rash. Neurologic--cranial nerves II through XII grossly intact. Rheumatologic--normal range of motion. Psychiatric--unable to fully assess. Discharge Data Allergies Allergy/AdvReac Type Severity Reaction Status Date / Time No Known Allergies Allergy Unverified 01/05/24 15:23 Consultations 01/05/24 14:22 ED Decision to Admit Stat Ordered Studies 01/05/24 12:40 CT head/brain wo con Stat Hospital Course (1) Vomiting and diarrhea: Patient's from [place], present on account of vomiting and diarrhea Son reports that there is a viral illness going through the nursing facility No leukocytosis; afebrile CXR cardiomegaly without acute process; no consolidation to suggest pneumonia Head CT NAF Rocephin 2000 mg IV x 1 given in the ED; will defer further antibiotics at this time IV fluid resuscitation with Plasma-Lyte at 100mL/hr x 2 Zofran as needed for nausea/vomiting; QTc 441 Aspiration precautions Fall precautions (2) Dementia: Advanced dementia; patient is nonverbal, does not follow commands, and is unresponsive to questioning Patient's family is currently considering hospice care Case management consulted to provide additional hospice information upon discharge Continue memantine (3) Hypokalemia: Replace potassium (4) Hypertension: Hold Lasix, continue losartan (5) Hypothyroid: Hold levothyroxine Plan Disposition: Family has started to sign up for hospice, awaiting for bed to be delivered so that patient will be discharged home on hospice. DNR/DNI VTE PPx: Teds Total Time Total Time Spent Total Time Spent (In Minutes): 35 Discharge Plan Discharge Items Patient Disposition: Hospice - Home Reason For Visit: VOMITING, DIARRHEA, ADVANCED DEMENTIA Discharge Diagnosis: dementia, gastroenteritis Condition on Discharge: Fair Activity: Resume your previous activity Non-emergency contact: Primary Care Provider Call non-emergency contact if: you have any medication questions Follow-up/Referrals: Michelle Salem [Primary Care Provider] - Diet: Regular Addtl Attending Provider Instructions: home with hospice Pending Studies at Discharge: No Stand-Alone Forms: [facility] Medications and DC Order Prescriptions: Continued furosemide 40 mg tablet 60 mg PO Q OTHER DAY Rx Instructions: Alternate with 40 mg QOD furosemide 40 mg tablet 40 mg PO Q OTHER DAY Rx Instructions: Alternate with 60 mg QOD acetaminophen [Tylenol] 325 mg Tablet 650 mg PO TID ketoconazole 2 % shampoo 1 applic TOPICAL 2XWK loperamide [Anti-Diarrheal (loperamide)] 2 mg Tablet 2 mg PO DAILY PRN (Reason: .loose stool) Rx Instructions: administer after each loose stool until symptoms controlled; do not exceed 8 mg per 24 hrs levothyroxine 50 mcg tablet 50 mcg PO DAILY losartan 100 mg tablet 100 mg PO HS clonazepam 0.5 mg tablet,disintegrating 0.5 mg PO HS memantine 10 mg tablet 10 mg PO DAILY escitalopram oxalate 5 mg tablet 5 mg PO DAILY CeraVe Daily Moisturizing Lotion 1 applic TOPICAL DAILY Rx Instructions: Apply to affected areas on dry skin on upper extremities diclofenac sodium 1 % gel 2 g TOPICAL BID Rx Instructions: Apply to right knee Discharge Orders: Discharge Order (Routine); Ordered 01/07/24 Ordered By: Vanessa Du Admission Data Admit Date/Time: 01/05/24 15:14 Attending Provider: Vanessa Du Admit Provider: Hernando Rae Primary Care Provider: Michelle quinnSalem Other Providers: Hernando Rae Coding Level of Care Code 22703 INP/OBS DISCH >30 MIN Diagnoses Vomiting and diarrhea R11.10; R19.7 Dementia F03.90 Hypokalemia E87.6 Hypertension I10 Hypothyroid E03.9 Time Spent (min) 35
== END 2024-01-07 17:36 | disposition hospice, home (50) ==
LOC: ED 12:24 → 3N 12:24 → SUATTDRO 15:14 → 3N 16:15
DX: Z79.890 Hormone replacement therapy; G62.9 Polyneuropathy, unspecified; E03.9 Hypothyroidism, unspecified; K52.9 Noninfective gastroenteritis and colitis, unspecified; Z66 Do not resuscitate; F03.90 Unspecified dementia, unspecified severity, without behavioral disturbance, psychotic disturbance, mood disturbance, and anxiety; Z79.899 Other long term (current) drug therapy; E87.6 Hypokalemia; I11.9 Hypertensive heart disease without heart failure